=== PATIENT | female | born 1945 | race Caucasian/White ===

== ENCOUNTER 2024-06-11 13:02 | Emergency (ER) | payer MEDICAID ==
[~2024-06-11] VITALS: Ht 160 cm; Wt 55.0 kg
[2024-06-11 13:03] VITALS: O2SAT 98
[2024-06-11] MEDS: HYDROCODONE/ACETAMINOPHEN 7.5/325MG TABLET PO ONE (14:24)
[2024-06-11] MEDS ORDERED: HYDR-4001 MT (14:41)
[2024-06-11 16:47] VITALS: BP 160/62; PULSE 84; RESP 16; TEMP 36.7; O2SAT 98
== END 2024-06-11 16:49 | disposition home or self-care (01) ==
LOC: EDBD 13:02 → ER 13:02
DX: S82.001A Unspecified fracture of right patella, initial encounter for closed fracture (principal); I10 Essential (primary) hypertension; W18.30XA Fall on same level, unspecified, initial encounter; Y93.89 Activity, other specified; Y92.89 Other specified places as the place of occurrence of the external cause; Y99.8 Other external cause status
CPT/HCPCS: 73560; 29505; 99283; Z7610